=== PATIENT | female | born 1995 | race Caucasian/White ===

== ENCOUNTER 2017-02-14 21:22 | Emergency (ER) | payer OTHER ==
[~2017-02-14 21:22] MED LIST: ABILIFY PO; ADDERAL PO; ALBUTEROL17 GM INH; AMOXICILLIN500 M1 PO; AURALGAN OTIC S10 M1 AD; AZITHROMYCIN250 MG PO; BENZONATATE PO; BIRTH CONTROL; FLAGYL PO; LEVAQUIN PO; LIDOCAINE VISCOU1 ML EXT; MACROBID100 M1 PO; MEDROL PO; MELATONIN3 MG PO; MOTRIN600 M1 PO; NEURONTIN PO; PHENERGAN DM1 ML PO; PHENERGAN25 MG PO; PREDNISONE PO; PRENATAL1 TA1 PO; PROMETHAZINE D118 ML PO; SUDAFED PO; UNKNOWN ANXIETY MED; ZITHROMAX PO; ZOFRAN ODT4 MG PO
== END 2017-02-14 21:42 | disposition home or self-care (01) ==
LOC: CFTX 21:22
DX: J06.9 Acute upper respiratory infection, unspecified (principal); F17.210 Nicotine dependence, cigarettes, uncomplicated
CPT/HCPCS: 99282

== ENCOUNTER 2017-04-02 17:25 | Emergency (ER) | payer OTHER | END 2017-04-02 18:12 | disposition home or self-care (01) | LOC: CFTX 17:25 | DX: A54.9 Gonococcal infection, unspecified (principal) | CPT/HCPCS: 96372; 99283; J0696 ==